=== PATIENT | male | born 1945 | race Caucasian/White ===

== ENCOUNTER 2024-07-05 07:14 | Day surgery (SDC) | payer MEDICARE, SELFPAY ==
[2024-07-05] VITALS (13 sets, daily range): BP systolic 143–178; BP diastolic 81–96; BMI 31.4
[2024-07-05] MEDS: LOW STRENGTH ASPIRIN 81 MG PO (08:04)
--- NOTE | 2024-07-05 11:16 | ITS.CL.CATH ---
Classroom Aide - Catheterization
Cardiac Catheterization
Procedure Report:
LEFT HEART CATHETERIZATION
Date of Procedure: July 05, 2024
Procedures performed:
1: Coronary angiography
2: Left ventricular hemodynamic assessment
Primary Care Physician: Dr. Jade Alexis
Primary Residential Property Tax Appraiser: Myself
INDICATION: The patient is a 79-year-old man with a past medical history of hypertension, hyperlipidemia, status post pacemaker placement, and prior smoking who presents with increasing exertional chest tightness concerning for unstable angina.
Nuclear perfusion studies in the past with atypical chest pains have been low risk.
ACCESS: The patient was prepped and draped in usual sterile fashion. A 6 [place] sheath was placed in the right radial artery using the Seldinger over the wire technique.
HEMODYNAMIC FINDINGS (mmHg):
LV(s/d,EDP): 193/13, 22
LV(s/d,EDP): 125/5, 12
Ao(s/d,m): 125/59, 83
ANGIOGRAPHIC FINDINGS:
Single-plane Left Ventriculography in GILLIS Projection: Not done.
Coronary Angiography:
Dominance: Left
Left Main: Widely patent.
Left Anterior Descending: The left anterior descending artery is a moderate to large caliber vessel that is widely patent with only mild luminal irregularities. There is heavy proximal calcification but no significant stenotic disease. The LAD
gives rise to 2 major diagonal branches which are widely patent.
Left Circumflex: The left circumflex is a large-caliber dominant vessel that gives rise to a large OM1 that immediately branches to supply the lateral wall. The larger medial branch has a smooth 30% proximal stenosis. The circumflex continues on
to give a large posterior left ventricular branch and smaller posterior descending artery. These vessels are widely patent with normal flow.
Right Coronary: Small nondominant vessel that is widely patent.
Fluoroscopy Time (min): 2.5
Radiation Dose (mGy): 211
DAP (Gy.cm2): 12.5
Closure device: None. A TR band was applied for hemostasis at the right wrist.
Complications: None.
ASSESSMENT:
1: Mild nonobstructive coronary artery disease.
2: Poorly controlled hypertension responsive to IV nitrates. It may be this that is behind his symptoms. Will more aggressively treat hypertension.
CONCLUSIONS and RECOMMENDATIONS:
1: Continue aggressive medical therapy for hypertension, hyperlipidemia, PAD, and mild nonobstructive coronary artery disease.
2: Clinical follow-up as scheduled.
Amie Jeffries M.D.
== END 2024-07-05 12:44 | disposition home or self-care (01) ==
LOC: CATH 07:14
PROVIDERS: ATTENDING PHYSICIAN Internal Medicine Interventional Cardiology; FAMILY PHYSICIAN Family Medicine
DX: I25.10 Atherosclerotic heart disease of native coronary artery without angina pectoris (principal); I10 Essential (primary) hypertension; E78.5 Hyperlipidemia, unspecified; Z87.891 Personal history of nicotine dependence; Z95.0 Presence of cardiac pacemaker
CPT/HCPCS: 93458; C1894; Q9967